=== PATIENT | male | born 1995 | race Caucasian/White ===

== ENCOUNTER 2021-02-07 17:14 | Emergency (ER) | payer OTHER ==
[~2021-02-07] VITALS: Ht 177.8 cm; Wt 86.0 kg
[2021-02-07 18:52] VITALS: BP 135/67
== END 2021-02-07 18:53 | disposition home or self-care (01) ==
LOC: ER 17:14
DX: Z02.89 Encounter for other administrative examinations (principal); Z20.822 Contact with and (suspected) exposure to COVID-19
CPT/HCPCS: 71045; 87426; 99284